=== PATIENT | male | born 1960 | race Caucasian/White ===

== ENCOUNTER → 2016-10-05 | Outpatient (REF) ==
--- NOTE | 2016-10-05 13:36 | REP ---
AP LATERAL LUMBAR SPINE: 10/05/2016. Clinical history: Back pain, disability determination. No comparison study. Findings. Slight loss of normal lordosis. There is lumbar spondylosis at L5-S1 with posterior osteophytic ridging and a few millimeters of retrolisthesis of L5 on S1. The disc space heights above were intact except slight narrowing at L1-2 there are small marginal osteophytes at all levels. There is hypertrophic facet change at L5. S1 less at L4-5. Lower thoracic level with some minor degenerative disc changes and no compression deformity. Vascular calcifications of the aorta without aneurysm noted. Surgical kimberly overlying the inguinal region on the left from presumed hernia surgery. SI joints, sacral ala and foramina intact. Iliac wings intact. The lower thoracic vertebral bodies and ribs, intact on the AP view. Signed by Vic Poole MD 10/05/2016 01:27 P
== END | disposition home or self-care (01) ==
LOC: M SMT 11:49
PROVIDERS: ATTEND Internal Medicine
DX: Z02.71 Encounter for disability determination (principal)

== ENCOUNTER → 2018-03-15 | Outpatient (REF) | payer OTHER ==
[2018-03-15 12:20] LABS: HEMATOCRIT 43.8 % (42.0-52.0); HEMOGLOBIN 14.5 g/dl (13.5-17.5); MEAN CORPUSCULAR HEMOGLOBIN 29.7 pg (27.0-33.0); MEAN CORPUSCULAR HGB CONC 33.1 g/dl (32.0-36.5); MEAN CORPUSCULAR VOLUME 89.8 fl (80.0-96.0); PLATELET COUNT, AUTOMATED 241 10^3/uL (150-450); RED BLOOD COUNT 4.88 10^6/uL (4.30-6.10); RED CELL DISTRIBUTION WIDTH 13.6 % (11.5-14.5); WHITE BLOOD COUNT 9.2 10^3/uL (4.0-10.0)
[2018-03-15 13:27] LABS: ALBUMIN 3.6 GM/DL (3.2-5.2); ALBUMIN/GLOBULIN RATIO 0.97 (1.00-1.93); ALKALINE PHOSPHATASE 78 U/L (45-117); ALT/SGPT 16 U/L (12-78); ANION GAP 9 MEQ/L (8-16); AST/SGOT 11 U/L (7-37); BILIRUBIN,TOTAL 0.4 MG/DL (0.2-1.0); BLOOD UREA NITROGEN 28 MG/DL (7-18); CARBON DIOXIDE LEVEL 29 MEQ/L (21-32); CHLORIDE LEVEL 106 MEQ/L (98-107); CHOLESTEROL LEVEL 231 MG/DL (<200); CHOLESTEROL RISK RATIO 5.133 (<5); CREATININE FOR GFR 1.79 MG/DL (0.70-1.30); GLOMERULAR FILTRATION RATE 41.6 (>56); GLUCOSE, FASTING 73 MG/DL (70-100); HDL CHOLESTEROL 45 MG/DL (>40); LDL CHOLESTEROL 133.6 MG/DL (<100); NON-HDL-C 186 MG/DL; POTASSIUM SERUM 3.1 MEQ/L (3.5-5.1); SODIUM LEVEL 144 MEQ/L (136-145); THYROID STIMULATING HORMONE 0.775 uIU/ML (0.358-3.740); TOTAL PROTEIN 7.3 GM/DL (6.4-8.2); TRIGLYCERIDES LEVEL 262 MG/DL (<150)
== END ==
LOC: M SFHCPLAZ 09:56
DX: Z00.00 Encounter for general adult medical examination without abnormal findings (principal); Z13.220 Encounter for screening for lipoid disorders
CPT/HCPCS: 84443

== ENCOUNTER → 2018-12-19 | Outpatient (REF) | payer OTHER, MEDICAID ==
[2018-12-19 19:45] LABS: ALBUMIN 3.7 GM/DL (3.2-5.2); BILIRUBIN,TOTAL 0.6 MG/DL (0.2-1.0); CALCIUM LEVEL 8.5 MG/DL (8.8-10.2); CHOLESTEROL RISK RATIO 6.885 (<5); CREATININE FOR GFR 1.33 MG/DL (0.70-1.30); FOLATE 20.2 NG/ML; GLOMERULAR FILTRATION RATE 58.4 (>49); POTASSIUM SERUM 3.7 MEQ/L (3.5-5.1); THYROID STIMULATING HORMONE 1.02 uIU/ML (0.358-3.740); TOTAL PROTEIN 8.2 GM/DL (6.4-8.2)
[2018-12-19 19:46] LABS: BASO % 0.5 % (0.0-1.0); EOS # 0.2 10^3/uL (0.0-0.50); EOS % 2.5 % (0.0-3.0); HEMATOCRIT 46.4 % (42.0-52.0); HEMOGLOBIN 14.8 g/dl (13.5-17.5); LYMPH % 22.4 % (24.0-44.0); MEAN CORPUSCULAR HEMOGLOBIN 27.8 pg (27.0-33.0); MEAN CORPUSCULAR HGB CONC 31.9 g/dl (32.0-36.5); MEAN CORPUSCULAR VOLUME 87.2 fl (80.0-96.0); MONO # 0.7 10^3/uL (0.0-0.8); MONO % 7.4 % (0.0-5.0); NEUTROPHILS # 5.9 10^3/uL (1.8-7.7); NEUTROPHILS % 66.9 % (36.0-66.0); PLATELET COUNT, AUTOMATED 308 10^3/uL (150-450); RED BLOOD COUNT 5.32 10^6/uL (4.30-6.10); WHITE BLOOD COUNT 8.8 10^3/uL (4.0-10.0)
== END ==
LOC: M LAB REF 18:30
PROVIDERS: ATTEND Nurse Practitioner Family
DX: Z86.73 Personal history of transient ischemic attack (TIA), and cerebral infarction without residual deficits (principal); I10 Essential (primary) hypertension; Z13.9 Encounter for screening, unspecified

== ENCOUNTER 2019-03-09 11:12 | Inpatient (IN) | payer MEDICAID, OTHER ==
[~2019-03-09 11:12] MED LIST: THIAMINE 100 MG TAB PO SCH
[2019-03-09] MEDS ORDERED: ONDANSETRON 4MG/2ML VIAL (J2405) IV ONE (11:45)
[2019-03-09 11:55] LABS: BASO % 0.2 % (0.0-1.0); EOS # 0.1 10^3/uL (0.0-0.50); EOS % 0.6 % (0.0-3.0); HEMATOCRIT 43.9 % (42.0-52.0); HEMOGLOBIN 14.1 g/dl (13.5-17.5); LYMPH # 1.1 10^3/uL (1.5-4.5); LYMPH % 6.5 % (24.0-44.0); MEAN CORPUSCULAR HEMOGLOBIN 28.2 pg (27.0-33.0); MEAN CORPUSCULAR HGB CONC 32.1 g/dl (32.0-36.5); MEAN CORPUSCULAR VOLUME 87.8 fl (80.0-96.0); MONO # 1.5 10^3/uL (0.0-0.8); MONO % 8.9 % (0.0-5.0); NEUTROPHILS # 13.8 10^3/uL (1.8-7.7); NEUTROPHILS % 83.3 % (36.0-66.0); PLATELET COUNT, AUTOMATED 318 10^3/uL (150-450); WHITE BLOOD COUNT 16.6 10^3/uL (4.0-10.0)
[2019-03-09] MEDS ORDERED: LOSA100T50 PO (11:56)
[2019-03-09 12:11] LABS: INR 1.14; PARTIAL THROMBOPLASTIN TIME 28.3 SECONDS (25.0-38.4); PROTHROMBIN TIME 14.3 SECONDS (11.8-14.0)
[2019-03-09 12:25] LABS: ALBUMIN 2.8 GM/DL (3.2-5.2); ALT/SGPT 21 U/L (12-78); BILIRUBIN,DIRECT 0.3 MG/DL (0.0-0.2); BILIRUBIN,TOTAL 1.1 MG/DL (0.2-1.0); BLOOD UREA NITROGEN 39 MG/DL (7-18); CALCIUM LEVEL 8.7 MG/DL (8.8-10.2); CARBON DIOXIDE LEVEL 26 MEQ/L (21-32); CHLORIDE LEVEL 99 MEQ/L (98-107); CK-MB VALUE MASS < 1.0 NG/ML (<3.6); CPK CREATINE PHOSPHOKINASE 42 U/L (39-308); CREATININE FOR GFR 1.94 MG/DL (0.70-1.30); GLOMERULAR FILTRATION RATE 37.8 (>49); GLUCOSE, FASTING 105 MG/DL (70-100); MB/CK RELATIVE INDEX 2.38 (< OR =4); POTASSIUM SERUM 3.4 MEQ/L (3.5-5.1); SODIUM LEVEL 136 MEQ/L (136-145); TOTAL PROTEIN 7.5 GM/DL (6.4-8.2); TROPONIN I 0.02 NG/ML (< 0.10)
--- NOTE | 2019-03-09 12:29 | REP ---
CT BRAIN WITHOUT IV CONTRAST: CT brain performed without IV contrast. There is moderate atrophy. There is no midline shift or mass effect. Patchy periventricular chronic small vessel ischemic changes are noted. Small lacunar infarctions are seen in the region of the basal ganglia bilaterally, probably old. Small hypodensity in the right delores may represent a lacunar infarct of indeterminate age. There is no acute intracranial hemorrhage. There is no extra-axial fluid collection. Vascular calcifications are seen in the carotid siphons. Electronically Signed by Rodrigo Lugo MD 03/10/2019 09:37 P
--- NOTE | 2019-03-09 12:31 | REP ---
CHEST, SINGLE VIEW: There is no evidence of acute infiltrate. No pleural effusion is seen. The heart is normal in size. The mediastinal silhouette is unremarkable. The visualized osseous structures are intact. IMPRESSION: No acute pulmonary disease. Electronically Signed by Rodrigo Lugo MD 03/10/2019 09:38 P
[2019-03-09] MEDS ORDERED: LABETALOL HCL 100 MG/20 ML VIAL IV STA ×2 (12:43→15:56)
[2019-03-09] MEDS ORDERED: LABETALOL HCL 100 MG/20 ML VIAL As Ordered ONE (12:45)
[2019-03-09] MEDS ORDERED: NS 500 ML IV ONE (13:15)
[2019-03-09] MEDS ORDERED: NICOTINE 14 MG/24 HR TRANSDERMAL TD ONE (13:45)
[2019-03-09] MEDS ORDERED: cloNIDine 0.2 MG TAB PO STA (14:04)
[2019-03-09] MEDS ORDERED: NEXI20CA PO (14:07)
[2019-03-09] MEDS ORDERED: ATOR80TA59 PO (14:07)
--- NOTE | 2019-03-09 14:08 | REP ---
CT ABDOMEN AND PELVIS WITHOUT CONTRAST: CT abdomen and pelvis performed without oral or IV contrast. Sagittal and coronal reconstruction images are performed. The visualized lung bases demonstrate no evidence of infiltrate. Two peripheral calcified granulomas are seen in the liver. Gallbladder is significantly distended and contains multiple small stones. There is diffuse gallbladder wall thickening and pericholecystic edema. Consistent with cholecystitis. I suspect a stone in the cystic duct measuring about 3 mm. The visualized common bile duct is not definitely dilated. The spleen, adrenals, pancreas and kidneys are unremarkable. No renal or ureteral calculus is seen and there is no hydroureteronephrosis. No bladder calculus is seen. There is atherosclerotic calcification of the abdominal aorta without aneurysm. Scattered reactive subcentimeter lymph nodes are seen in the right upper quadrant. There is no free air or free fluid. There is no bowel wall thickening. No pelvic mass is seen. Metallic clips and sutures are seen in the anterior pelvis on the left. There are degenerative changes of the spine. IMPRESSION: Gallstones in the gallbladder with suspected 3 mm stone in the cystic duct. There is florid cholecystitis. No free air or free fluid. Electronically Signed by Rodrigo Lugo MD 03/10/2019 10:01 P
[2019-03-09] MEDS ORDERED: ACETAMINOPHEN TAB 650MG DOSE (2X325MG) PO PRN (14:15)
[2019-03-09] MEDS ORDERED: ONDANSETRON 4MG/2ML VIAL (J2405) IV PRN (14:15)
[2019-03-09] MEDS ORDERED: MOM 30ML SUSPENSION UDC PO PRN (14:15)
[2019-03-09] MEDS: hydrALAZINE INJ 20 MG/ML VIAL IV STA ×2 (14:43→15:28)
[2019-03-09] MEDS ORDERED: LORazepam 2 MG TAB PO PRN (14:45)
[2019-03-09 14:49] LABS: THYROID STIMULATING HORMONE 0.516 uIU/ML (0.358-3.740)
[2019-03-09] MEDS ORDERED: cefTRIAXone SOD 2 GM in D5W MINI-BAG PLUS 50 ML IV SCH (15:00)
[2019-03-09 15:59] VITALS: BP 192/100
[2019-03-09] MEDS ORDERED: metroNIDAZOLE 500 MG in APPROPRIATE DILUENT 1 EA IV SCH (16:00)
[2019-03-09] MEDS ORDERED: ALTEPLASE RECOMBINANT IV ONE (16:45)
[2019-03-09] MEDS ORDERED: ALTEPLASE 100MG INJ (J2997) IV ONE (16:45)
[2019-03-09] MEDS ORDERED: DILUENT IV ONE (16:45)
[2019-03-09 17:31] VITALS: BP 143/73
--- NOTE | 2019-03-09 18:04 | HPEPDOC ---
[facility] Medical History & Physical Date of Admission Mar 09, 2019 Date of Service: Mar 09, 2019 Primary Care Physician: Chantal Easton Attending Physician: DEMARCUS KENYON MD History and Physical CHIEF COMPLAINT: Acute abdominal pain, syncope, collapse HISTORY OF PRESENT ILLNESS: Fidel is a 58-year-old male with pertinent past medical history of previous stroke, hypertension, hyperlipidemia, chronic kidney disease, who presented to the emergency department today via ambulance with chief complaint of severe abdominal pain. Patient was walking around around 10 AM experienced sudden onset extreme abdominal pain described as a "hammer to the gut" along his right abdomen rating and 9 on a scale 1-10 and subsequently dropped to the ground in pain. A neighbor in the apartment complex noticed pill on the ground and called EMS. Patient says that the pain comes and goes, does not radiate and is still the same as it was when he presented emergency department, rating 9 on scale 1-10. He states that eating and breathing deeply makes his pain worse. He has never had pain like this before. He states that he's been out of his blood pressure medication for the past week and denies recent illness, recent med change, recent travel or sick contacts. In the ED, Fidel had a systolic blood pressure greater than 180 and was diagnosed with hypertensive emergency, especially in light of his JORDAN in this setting, where his baseline Cr is 1.3-1.4, and was 1.9 on this admission. Imaging was done also showed acute cholecystitis. As he was being evaluated by the hospitalist team for admission, he began to demonstrate acute neurological changes. At this point, a thorough stroke assessment was implemented. Please see below for events transpired, leading up to his transfer. PAST MEDICAL HISTORY: 1. History of CVA. 2. Essential hypertension. 3. Chronic kidney disease. 4. Hyperlipidemia 5. History of alcohol abuse PAST SURGICAL HISTORY: 1. Appendectomy. 2. Hernia repair 2. 3. b/l ear surgeries for constant ear aches. 4. wisdom teeth extraction SOCIAL HISTORY: Marital status: . Resides in: By himself in [place], [place] Children: 2 (1 son, Kana; 1 daughter, Morena) Employment: Unemployed Tobacco use: Active smoker- One half pack per day cigarettes for 46 years ETOH: History of alcohol abuse but states he has not a drink in a month, prefers beer Illicit drug use: Marijuana, occasionally FAMILY HISTORY: Father: Open-heart surgery (20 years ago) History of hypertension throughout the family, per patient ALLERGIES: Please see below. REVIEW OF SYSTEMS: CONSTITUTIONAL: Endorses general weakness; feeling feverish HEENT: Denies headache, tinnitus, sore throat, reflux, feeling lightheaded, dizziness, diaphoresis, eye pain, change in vision, ear pain, change in mentation. CARDIOVASCULAR: Denies chest pain, chest pressure, or palpitations RESPIRATORY:. Denies dyspnea or cough. GASTROINTESTINAL: Endorses right lower abd pain, nausea; denies constipation, diarrhea, or vomiting GENITOURINARY: Denies dysuria. MUSCULOSKELETAL: Endorses general weakness NEUROLOGICAL: Denies numbness or tingling in extremities. HOME MEDICATIONS: Please see below. PHYSICAL EXAMINATION: VITAL SIGNS: Temperature 98.6, pulse 75, respiratory rate 18, blood pressure 187/81, pulse oximetry 96% on room air. GENERAL APPEARANCE: Patient was cooperative and interactive. He appeared slig htly older than stated age. Malodorous urine by odor HEENT: Poor dentition CARDIOVASCULAR: Regular rate, regular rhythm S1, S2 normal, no rubs, clicks or murmurs; no pain on anterior chest palpation LUNGS:. Diminished inspiratory effort due to patient's clinical state; diffuse rhonchi present ABDOMEN: Tenderness to light and deep palpation right lower quadrant extending into right inguinal area; Normoactive bowel sounds in all 4 quadrants. MUSCULOSKELETAL: 5/5 muscle strength testing left upper extremity. Left lower extremity; 3/5 muscle strength testing. Right upper extremity, 2/5 muscle stre ngth testing. Right lower extremity. EXTREMITIES: 2+ radial, posterior tibial pulses bilaterally; no lower extremity edema present. NEUROLOGICAL: Alert and oriented x2 (not oriented to time); deficits seen. Cranial nerve III, 4 and 6 testing on extraocular motionpatient had trouble sustaining gaze and following finger; on further extremity. Further neurologic extremity testing- patient was unable to extend right upper extremity and keep it held up against gravity, he was also unable to lift right lower extremity at all and when it was passively lifted for him. He was unable to keep it held up in the air against gravity PSYCHIATRIC: Appropriate mood, appropriate affect LABORATORY DATA: See below. IMAGING: Head CT without IV contrast, 03/09/19- showed moderate atrophy. There is no midline shift or mass effect. Patchy periventricular chronic small vessel ischemic changes are noted. Small lacunar infarctions are seen in the region of the basal ganglia bilaterally, probably old. Small hypodensity in the right delores may represent a lacunar infarct of indeterminate age. There is no acute intracranial hemorrhage. There is no extra-axial fluid collection. Vascular calcifications are seen in the carotid siphons. Repeat Head CT without IV contrast, 03/09/19- showed no changes from head CT earlier in the day Abdominal/pelvis CT, 03/09/19- showed gallstones in the gallbladder with suspected 3 mm stone in the cystic duct. There is florid cholecystitis. No free air or free fluid. Chest X-ray, 03/09/19- showed no acute pulmonary disease MICROBIOLOGY: Please see below. ASSESSMENT/PLAN: Pt declined from when he was first evaluated for admission. Around 2:30, was noted to be alert, conversant, and able to move all extremities. At 3:30 PM, patient seemed more withdrawn and unable to speak full sentences and articulate, answers/thoughts. He was unable to hold right upper and lower extremities up against gravity or even lift either right upper or lower extremity under his own power. On initial NIH stroke testing at this time, patient scored 23. Babinski testing at this time was positive. One hour later at 4:30 PM patient was more responsive and follow-up NIH stroke test yielded a score of 13. Contact was made with [facility] and he telemedicine encounter occurred with Dr. Clemons. After this encounter, preparations were made to transfer the patient via airlift helicopter EMS to the [facility]. The patient was within the three-hour timeframe from the onset of symptoms to be eligible to receive TPA (alteplase) and was counseled on the risks and benefits associated with tPA administration. After being briefed on TPA, the patient consented twice to receive it. Infusion of TPA was started and patient was loaded into helicopter just before 6 PM and airlifted to [facility]. At time of discharge, the patient was stable with blood pressures in the 150s/90s, and still had focal deficits. The accepting physician at [facility] is Dr. Carter. The patient's next of kin, his son Kana, was contacted by the hospitalist team and briefed upon his father's status. He was told about the TPA administration and his father's transfer to [facility], and was amenable to all the steps taken. *Kana would like to be updated as care progresses for his father ZAKIYA stafford. Kana's contact phone number is [phone]. DISCHARGE DIAGNOSIS: Acute CVA with history of prior CVA Hypertensive emergency JORDAN on CKD III Acute cholecystitis Hypokalemia Hyperthyroidism, possibly subclinical HLD HTN Alcohol abuse Tobacco abuse GERD Vital Signs Vital Signs Date Time Temp Pulse Resp B/P (MAP) Pulse Ox O2 Delivery O2 Flow Rate FiO2 03/09/19 15:59 73 192/100 03/09/19 15:25 18 96 Room Air 03/09/19 14:05 98.6 Laboratory Data Labs 24H Laboratory Tests 2 03/09/19 11:42: Immature Granulocyte % (Auto) 0.5, White Blood Count 16.6H, Red Blood Count 5.00, Hemoglobin 14.1, Hematocrit 43.9, Mean Corpuscular Volume 87.8, Mean Corpuscular Hemoglobin 28.2, Mean Corpuscular Hemoglobin Concent 32.1, Red Cell Distribution Width 13.6, Platelet Count 318, Neutrophils (%) (Auto) 83.3H, Lymphocytes (%) (Auto) 6.5L, Monocytes (%) (Auto) 8.9H, Eosinophils (%) (Auto) 0.6, Basophils (%) (Auto) 0.2, Neutrophils # (Auto) 13.8H, Lymphocytes # (Auto) 1.1L, Monocytes # (Auto) 1.5H, Eosinophils # (Auto) 0.1, Basophils # (Auto) 0.0, Nucleated Red Blood Cells % (auto) 0.0, Prothrombin Time 14.3H, Prothromb Time International Ratio 1.14, Activated Partial Thromboplast Time 28.3, Anion Gap 1 1, Glomerular Filtration Rate 37.8L, Calcium Level 8.7L, Aspartate Amino Transf (AST/SGOT) 26, Alanine Aminotransferase (ALT/SGPT) 21, Alkaline Phosphatase 121H, Total Bilirubin 1.1H, Direct Bilirubin 0.3H, Total Creatine Kinase 42, Creatine Kinase MB < 1.0, Creatine Kinase MB Relative Index 2.38, Troponin I 0.02, Total Protein 7.5, Albumin 2.8L, Albumin/Globulin Ratio 0.60L, Thyroid Stimulating Hormone (TSH) 0.516 CBC/BMP Laboratory Tests 03/09/19 11:42 Red Blood Count 5.00, Mean Corpuscular Volume 87.8, Mean Corpuscular Hemoglobin 28.2, Mean Corpuscular Hemoglobin Concent 32.1, Red Cell Distribution Width 13.6, Neutrophils (%) (Auto) 83.3 H, Lymphocytes (%) (Auto) 6.5 L, Monocytes (%) (Auto) 8.9 H, Eosinophils (%) (Auto) 0.6, Basophils (%) (Auto) 0.2, Neutrophils # (Auto) 13.8 H, Lymphocytes # (Auto) 1.1 L, Monocytes # (Auto) 1.5 H, Eosinophils # (Auto) 0.1, Basophils # (Auto) 0.0 Allergies Coded Allergies: NSAIDS (Non-Steroidal Anti-Inflamma (Verified Adverse Reaction, Unknown, N/V, 03/09/19) acetaminophen (Verified Adverse Reaction, Unknown, N/V, 03/09/19) A-FIB/CHADSVASC A-FIB History Current/History of A-Fib/PAF?: No Current PO Anticoag Therapy: No (patient is currently receiving TPA infusion) Attending Note Attending Note I saw and examined the patient. I agree with the finding and the plan of care as documented in the resident's note. MURIEL BRIGGS PGY-1 Mar 09, 2019 18:04 DEMARCUS KENYON MD Mar 12, 2019 21:48 MELODIE VILLANUEVA DO Mar 15, 2019 16:36
--- NOTE | 2019-03-09 19:20 | ECGEPIP ---
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
[2019-03-09] MEDS ORDERED: DOCUSATE SODIUM 100 MG CAP PO SCH (21:00)
[2019-03-09] MEDS ORDERED: ATORVASTATIN 20 MG TAB PO SCH (21:00)
--- NOTE | 2019-03-10 00:45 | IPNPDOC ---
Text Note Date of Service The patient was seen on 03/09/19. NOTE Mr Ambrocio was admitted to my service for Hypertensive urgency , syncope, oleg on ckd . About 2 hours later i was urgently called to the bedside by the nurse for acute mental status changes and new onset of weakness. I immediately arrived at the bedside at 3:30 pm and started evaluating the patient . Patient was having mumbled and slurred speech whereas before he was fully coherent. He was alert, his airway was good but his blood pressure was uncontrolled with SBP of 200. He was also noted to have new onset right hemiparesis and left facial droop. Patient was diagnosed to be having acute stroke. I immediately got a repeat CT head . I personally spoke to the radiologist fire information officer from the unit and got the reading that it was unchanged from the CT head earlier in the day. There was no hemorrhage. On my evaluation his NIHSS score was 11. He was a candidate for TPA. I immediately contacted [facility] our Acute stroke referral center. I spoke with Dr Torres the stroke attending then we did a video- tele consultation with him in the patient's room and he agreed that patient was a candidate for Alteplase. Alteplase was ordered at the appropriate dosage and I requested to transfer the patient to [facility] for further management. I then spoke with Dr Carter in the neuro ICU at [facility] and the patient was accepted for transfer. Patient's blood pressure was over 185 so he received another dose of labetalol IV this brought his bp down and TPA was started. I decided to transfer him by Air to [facility]. I then spoke with his son over the phone and updated his about the patient's condition and his ongoing treatment and further plan of care. I spent 2 hours total time at the bedside and in the unit in the evaluation and management of the patient and to coordinate his transfer to a higher level of care. On initial evaluation in the ED he had complained of vomiting and diarrhea 1 episode each the night before and some vague abdominal pain. So a CT abdomen pelvis without contrast was ordered. The result came back showing Acute cholecystis while the patient was getting the TPA. So we gave a dose of Ceftriaxone prior to transfer. Total time Spent in administering critical care Evaluation and management was 120 mins. VS,Fishbone, I+O VS, Fishbone, I+O Laboratory Tests 03/09/19 11:42 Red Blood Count 5.00, Mean Corpuscular Volume 87.8, Mean Corpuscular Hemoglobin 28.2, Mean Corpuscular Hemoglobin Concent 32.1, Red Cell Distribution Width 13.6, Neutrophils (%) (Auto) 83.3 H, Lymphocytes (%) (Auto) 6.5 L, Monocytes (%) (Auto) 8.9 H, Eosinophils (%) (Auto) 0.6, Basophils (%) (Auto) 0.2, Neutrophils # (Auto) 13.8 H, Lymphocytes # (Auto) 1.1 L, Monocytes # (Auto) 1.5 H, Eosinophils # (Auto) 0.1, Basophils # (Auto) 0.0 Vital Signs Date Time Temp Pulse Resp B/P (MAP) Pulse Ox O2 Delivery O2 Flow Rate FiO2 03/09/19 17:31 98.1 143/73 (96) 03/09/19 17:25 72 18 96 03/09/19 16:40 Room Air I&O- Last 24 Hours up to 6 AM 03/10/19 06:00 Intake Total 50 ml Balance 50 ml DEMARCUS KENYON MD Mar 10, 2019 00:42
--- NOTE | 2019-03-10 08:02 | REP ---
CT BRAIN WITHOUT IV CONTRAST: CT brain performed without IV contrast and compared to the prior exam of the same day. Once again, moderate atrophy is noted as well as periventricular small vessel ischemic change. Old lacunar infarcts are again seen in the basal ganglia bilaterally. The previously noted small hypodensity in the delores is not seen on the current exam. There is no acute intracranial hemorrhage, or extra-axial fluid collection. I see no acute mass-effect or edema. There are vascular calcifications in the carotid siphons. IMPRESSION: Chronic atrophy and small vessel ischemic changes. Bilateral old lacunar infarcts in the basal ganglia. The small hypodensity in the delores is not seen o the current exam. No acute intracranial hemorrhage. Electronically Signed by Rodrigo Lugo MD 03/10/2019 10:33 P
[2019-03-10] MEDS ORDERED: MULTIVITAMINS/MINERALS THERAP 1 TAB PO SCH (09:00)
[2019-03-10] MEDS ORDERED: PANTOPRAZOLE 20 MG TAB PO SCH (09:00)
[2019-03-10] MEDS ORDERED: FOLIC ACID 1 MG TAB PO SCH (09:00)
== END 2019-03-09 20:00 | disposition short-term general hospital (02) | DRG 45 ==
LOC: M ED 12:35 → M ED INP 13:15
PROVIDERS: ADMIT Internal Medicine Nephrology; ATTEND Internal Medicine Nephrology
DX: I63.59 Cerebral infarction due to unspecified occlusion or stenosis of other cerebral artery (principal); N17.9 Acute kidney failure, unspecified; K81.0 Acute cholecystitis; I16.1 Hypertensive emergency; I12.9 Hypertensive chronic kidney disease with stage 1 through stage 4 chronic kidney disease, or unspecified chronic kidney disease; F17.210 Nicotine dependence, cigarettes, uncomplicated; K21.9 Gastro-esophageal reflux disease without esophagitis; E87.6 Hypokalemia; E78.5 Hyperlipidemia, unspecified; N18.3 Chronic kidney disease, stage 3 (moderate); F10.10 Alcohol abuse, uncomplicated; Z90.49 Acquired absence of other specified parts of digestive tract; Z88.6 Allergy status to analgesic agent